=== PATIENT | male | born 1960 | race Caucasian/White ===

== ENCOUNTER → 2021-02-14 | Day surgery (SDC) | payer OTHER ==
[~2021-02-14] MED LIST: ACETAMINOPHEN 1000 MG/100 ML 100 ML IV ONE; AMOXICILLIN; BUPIVACAINE HCL 0.5% INJ 30 ML VIAL INJ ONE; DEXAMETHASONE SOD PHOS INJ 4 MG/ML VIAL ONE; EPINEPHRINE HCL 1:1000 1ML 1 MG/ML AMP ONE; FENTANYL CITRATE/PF 100MCG/2 ML INJ ONE; GLYBURIDE5 MG PO; GLYCOPYRROLATE INJ 0.2 MG/ML VIAL ONE; INSULIN REGULAR, HUMAN 100 UNIT/1 ML ONE; JANUVIA25 MG PO; LIDOCAINE 1% W/EPINEPHRINE 20 ML VIAL ONE; LIDOCAINE HCL 2% LOCAL INJ 5 ML SDV VIAL INJ ONE; METFORMIN HCL500 MG PO; MIDAZOLAM HCL 2 MG/2 ML VIAL ONE; NEOSTIGMINE 1 MG/ML 10ML VIAL ONE; ONDANSETRON HCL INJ 2MG/ML 2ML 2 MG/ML VIAL ONE; OXYMETAZOLINE HCL 0.05% NAS 1 SPRAY BTL ONE; PAIN MED; POVIDONE IODINE 0.05% 0.05 % ML PO ONE; PROPOFOL IV EMULSION 10 MG/ML 20 ML VIAL ONE; ROCURONIUM BROMIDE 10 MG/ML 5ML VIAL IV ONE; SEVOFLURANE INHAL SOLN 250 ML PEN BTL ONE; TRULICITY0.75 MG/0.
[2021-02-14 07:23] LABS: ANION GAP 15.3 mmol/L (8-16); CALCIUM 8.9 mg/dL (8.4-10.2); CREATININE, SERUM 0.77 mg/dL (0.72-1.25); POTASSIUM 4.3 mmol/L (3.5-5.1)
[2021-02-14] MEDS: ACETAMINOPHEN/CODEINE 300MG - 30MG TAB ONE ×2 (09:56→15:18)
[2021-02-14 10:00] VITALS: BP 110/65
== END | disposition home or self-care (01) ==
LOC: OR 05:21
PROVIDERS: ATTEND Otolaryngology Otolaryngology/Facial Plastic Surgery
DX: C09.9 Malignant neoplasm of tonsil, unspecified (principal); C11.9 Malignant neoplasm of nasopharynx, unspecified; K14.9 Disease of tongue, unspecified; F17.210 Nicotine dependence, cigarettes, uncomplicated; E11.9 Type 2 diabetes mellitus without complications; Z87.442 Personal history of urinary calculi; Z01.812 Encounter for preprocedural laboratory examination; Z01.810 Encounter for preprocedural cardiovascular examination; Z20.822 Contact with and (suspected) exposure to COVID-19
CPT/HCPCS: 10021; 31535; 36415; 42826; 80048; 82948; 88305; 93005; J0131; J0171; J1100; J2001; J2250; J2405; J2704; J2710; J3010; U0002; 88304; J1817